=== PATIENT | male | born 1965 | race Caucasian/White ===

== ENCOUNTER 2020-04-25 06:27 | Day surgery (SDC) | payer BC, SELFPAY ==
[2020-04-21 09:28] VITALS: BMI 28.1
--- NOTE | 2020-04-21 15:16 | P.CONAN_ITS ---
Documented by User: Xin [email or web address] 04/24/20 14:05 HPI - Anesthesia Eval Consult details Narrative: 55yo M for colonoscopy Per Dr Holguin, OK for pt to continue Brilinta and ASA preoperative, only to hold AM of procedure PMFSH Past Medical History Medical History CAD (coronary artery disease) Elevated cholesterol HTN (hypertension) Hx of gout Lab test negative for COVID-19 virus Lab test positive for detection of COVID-19 virus Myocardial infarction On anticoagulant therapy On beta alicia at home Surgical History Surgical History History of coronary artery stent placement Hx of appendectomy Hx of coronary artery balloon dilation Social History Social History Smoking Status: Former smoker Smoked in Last 30 Days: No Smoking Quit Date: 2004 Use of substances other than those prescribed or required for medical reasons: No Have you been hit, kicked, punched, or otherwise hurt by someone within the past year? If so, by whom?: No Advance Directives Information Provided: No Recently lost weight without trying: No Narrative Narrative: 2009 stent placed at OM 3. 2016 in-stent restenosis with another stent placed. 08/2019 repeat in-stent restenosis with balloon angioplasty. Cardiology OV 04/14/20: pt stable without CP since 08/2019 cath, modifying anti- hdl's to reach goal and avoid myalgias. Meds Allergies Allergy/AdvReac Type Severity Reaction Status Date / Time No Known Allergies Allergy Verified 04/21/20 09:36 Home Medications Medication Instructions Recorded Confirmed Type aspirin [Aspirin Low Dose] 81 mg PO DAILY 04/21/20 04/21/20 History ezetimibe 10 mg PO DAILY 04/21/20 04/21/20 History indomethacin 50 mg PO BID PRN 04/21/20 04/21/20 History metoprolol succinate 100 mg PO DAILY 04/21/20 04/21/20 History nitroglycerin [Nitrostat] 0.4 mg SUBLINGUAL Q5M PRN 04/21/20 04/21/20 History rosuvastatin 5 mg PO DAILY 04/21/20 04/21/20 History ticagrelor [Brilinta] 90 mg PO BID 04/21/20 04/21/20 History Exam Exam Date and Time: April 21, 2020 1516 Height,Weight and Vital Signs: Height 5 ft 8 in Weight 83.915 kg Narrative Narrative: EKG 04/14/20: SB@58. Otherwise normal. Assessment and Plan Assessment Anesthesia Assessment: Chart Reviewed Documented by User: Georgia Padron 04/25/20 07:27 [facility] Past Medical History Medical History CAD (coronary artery disease) Elevated cholesterol HTN (hypertension) Hx of gout Lab test negative for COVID-19 virus Lab test positive for detection of COVID-19 virus Myocardial infarction On anticoagulant therapy On beta alicia at home Surgical History Surgical History History of coronary artery stent placement Hx of appendectomy Hx of coronary artery balloon dilation Social History Social History Smoking Status: Former smoker Smoked in Last 30 Days: No Smoking Quit Date: 2004 Use of substances other than those prescribed or required for medical reasons: No Have you been hit, kicked, punched, or otherwise hurt by someone within the past year? If so, by whom?: No Advance Directives Information Provided: No Recently lost weight without trying: No Meds Allergies Allergy/AdvReac Type Severity Reaction Status Date / Time No Known Allergies Allergy Verified 04/21/20 09:36 Home Medications Medication Instructions Recorded Confirmed Type aspirin [Aspirin Low Dose] 81 mg PO DAILY 04/21/20 04/21/20 History ezetimibe 10 mg PO DAILY 04/21/20 04/21/20 History indomethacin 50 mg PO BID PRN 04/21/20 04/21/20 History metoprolol succinate 100 mg PO DAILY 04/21/20 04/21/20 History nitroglycerin [Nitrostat] 0.4 mg SUBLINGUAL Q5M PRN 04/21/20 04/21/20 History rosuvastatin 5 mg PO DAILY 04/21/20 04/21/20 History ticagrelor [Brilinta] 90 mg PO BID 04/21/20 04/21/20 History Exam Airway Mallampati Class: II TM Dist: >3cm Neck ROM: Full Assessment and Plan Assessment Anesthesia Assessment: Anesthesia Plan Discussed and Chart Reviewed Final Anesthetic Review NPO: Yes ASA Class: II Final Preanesthetic Review: No Changes in Pt Med Stat, Meds/Allgs Chart Reviewed, Consent Obtained/Reviewed and Anes Risks/Benef Reviewed Patient Risk: Low Procedure Risk: Low Assessment/Block/Sedation in SS: Assess/Block/Sedation-SS Anesthetic Plan Anesthetic Plan: GA and MAC: Disposition: Standard PACU
[2020-04-25 06:38] VITALS: BP 149/95; PULSE 89; RESP 16; TEMP 36.6; O2SAT 96
[2020-04-25] MEDS: Lactated Ringers 1,000 ML 100 ML IVCONT (07:00)
[2020-04-25 08:29] VITALS: BP 112/72; PULSE 70; RESP 16; TEMP 36; O2SAT 98
--- NOTE | 2020-04-25 08:32 | PM.OP ---
Brief Operative Note Date of procedure: 04/25/20 Pre-op diagnosis: Screening Post-op diagnosis: other (Distal Rectal polyp, Diverticulosis) Procedure: Colonoscopy to cecum and TI with snare polypectomy and placement of 2 Resolution clips Surgeon: Yrn Holguin Anesthesia: MAC Estimated blood loss (mL): 1.0 Pathology: other (A. Distal rectal polyp) Condition: stable Disposition: PACU
[2020-04-25 08:44] VITALS: BP 131/90; PULSE 75; RESP 16; TEMP 36.6; O2SAT 100
--- NOTE | 2020-04-25 09:09 | HO.POSTANES ---
Post Anesthesia Evaluation Post Anesthesia Evaluation Vital Signs: Vital Signs Temp Pulse Resp BP Pulse Ox 04/25/20 08:44 97.8 F 75 16 131/90 H 100 04/25/20 08:29 96.8 F 70 16 112/72 98 04/25/20 06:38 97.9 F 89 16 149/95 H 96 Anesthesia: Monitored Mental Status: Awake Pain Control: Satisfactory Nausea/Vomiting: None Hydration: Adequate Anesthesia-Related Issues: No Anes. Related Issues
--- NOTE | 2020-04-25 09:40 | OP_ITS ---
SURGEON: Yrn Holguin MD INDICATIONS: Full consent has been obtained from him for this, including risks of bleeding and perforation. PREOPERATIVE DIAGNOSIS: Colorectal cancer screening. POSTOPERATIVE DIAGNOSIS: PROCEDURE PERFORMED: Colonoscopy to the cecum and terminal ileum with snare polypectomy, and placement of 2 resolution clips. ESTIMATED BLOOD LOSS: COMPLICATIONS: ANESTHESIA: Monitored anesthesia care. ASSISTANTS: SPECIMENS: POSTOPERATIVE DIAGNOSES: Colorectal cancer screening, colon polyp, diverticulosis. DESCRIPTION OF PROCEDURE: The patient was placed in the left lateral decubitus position. The digital rectal exam revealed no abnormalities. The Olympus video pediatric colonoscope was entered into the rectum and advanced easily to the cecum. Once in the cecum, I did identify normal-appearing cecal pouch with appendiceal orifice and a normal-appearing ileocecal valve. The terminal ileum was cannulated and appeared normal. The scope was withdrawn back in the colon. The entire cecum and ileocecal valve appeared normal. There was transillumination of light deep in the right lower quadrant. The scope was slowly withdrawn assessing all mucosal surfaces carefully. Preparation was excellent. There was a mild amount of sigmoid diverticulosis. There was no evidence of any colitis nor angiodysplasia. The only polyp I visualized was in the retroflexed position in the rectum. This was about 1 cm above the dentate line. The polyp appeared to be grossly adenomatous and was between 6 and 8 mm in diameter. This was snared and recovered by suction. The polypectomy site appeared clean, without any sign of residual polyp nor bleeding. Given the fact that he has to go back on his Brilinta and aspirin today in relation to underlying coronary artery disease, I did place 2 resolution clips on the polypectomy site with good deployment and good hemostasis. The scope was straightened and withdrawn from the patient. He tolerated the procedure well and was returned to recovery area in stable condition. IMPRESSION: 1. Distal rectal polyp, status post snare polypectomy and placement of 2 resolution clips. 2. Diverticulosis. PLAN: The results of the pathology will be checked. If it is a tubular adenoma, I would recommend a followup colonoscopy in 5 years. If it happens only be hyperplastic, then I would recommend a followup colonoscopy in 10 years. He was advised to resume Brilinta and aspirin today as he did not take his dose yesterday. He would otherwise see me on a p.r.n. basis. MD BAN Jennings/NOBLE / [id number]
== END 2020-04-25 09:15 | disposition home or self-care (01) ==
PROVIDERS: PCP Internal Medicine; Visit Provider Internal Medicine
PROC: 0DJD8ZZ Inspection of Lower Intestinal Tract, Via Natural or Artificial Opening Endoscopic (ICD-10-PCS; CPT 45378; principal; 2020-04-25 07:30)
DX: Z12.11 Encounter for screening for malignant neoplasm of colon (principal); D12.8 Benign neoplasm of rectum; K57.30 Diverticulosis of large intestine without perforation or abscess without bleeding; I25.10 Atherosclerotic heart disease of native coronary artery without angina pectoris; Z98.61 Coronary angioplasty status; Z87.891 Personal history of nicotine dependence; Z79.01 Long term (current) use of anticoagulants; Z79.82 Long term (current) use of aspirin; Z79.899 Other long term (current) drug therapy
CPT/HCPCS: 45385; 88305

== ENCOUNTER 2023-07-09 06:51 | Outpatient (REF) | payer BC, SELFPAY ==
[2023-07-09 08:33] LABS: Alanine Aminotransferase 20 U/L (0-40); Albumin Level 4.7 g/dL (3.5-5.0); Alkaline Phosphatase 52 U/L (39-117); Anion Gap 12 (12-20); Aspartate Amino Transferase 18 U/L (5-37); Bilirubin Total 0.5 mg/dL (0.0-1.0); Blood Urea Nitrogen 23 mg/dL (9-16); C Reactive Protein 0.14 mg/dL (< or = 0.50); Calcium 9.9 mg/dL (8.4-10.2); Carbon Dioxide 25 mmol/L (22-29); Chloride 107 mmol/L (96-108); Cholesterol 258 mg/dL (<200); Erythrocyte Sedimentation Rate 2 MM/HR (0-15); Estimated Glomerular Filt Rate > 60; Glucose Random 99 mg/dL (60-115); HDL Cholesterol 35 mg/dL (>40); LDL Cholesterol Calculated 164 mg/dL (<100); Potassium 4.1 mmol/L (3.3-5.1); Sodium 140 mmol/L (135-145); Total Protein 7.9 g/dL (6.5-8.0); Triglycerides 297 mg/dL (<150); Uric Acid 9.4 mg/dL (3.4-7.0)
[2023-07-09 08:48] LABS: Rheumatoid Factor < 13.0 IU/mL (<15.0)
[2023-07-13 11:08] LABS: Anti Nuclear Antibody Screen NEGATIVE (NEGATIVE)
== END 2023-07-09 06:52 | disposition home or self-care (01) ==
LOC: HO.LAB 06:51
PROVIDERS: PCP Internal Medicine; Visit Provider Internal Medicine
DX: I10 Essential (primary) hypertension (principal); E78.2 Mixed hyperlipidemia; Z87.39 Personal history of other diseases of the musculoskeletal system and connective tissue; M79.10 Myalgia, unspecified site
CPT/HCPCS: 36415; 80053; 80061; 84550; 85652; 86038; 86140; 86431